=== PATIENT | female | born 2000 | race Two or more races ===

== ENCOUNTER 2019-10-15 10:44 | Emergency (ER) | payer BC, OTHER ==
[~2019-10-15] VITALS: Ht 154.9 cm; Wt 54.4 kg
[2019-10-15 12:16] VITALS: BP 145/84
[2019-10-15] MEDS ORDERED: ACETAMINOPHEN 325 MG TAB PO ONE (12:30)
== END 2019-10-15 12:43 | disposition home or self-care (01) ==
LOC: ER 10:44
DX: G43.009 Migraine without aura, not intractable, without status migrainosus (principal)
CPT/HCPCS: 70450